=== PATIENT | female | born 1990 | race Caucasian/White ===

== ENCOUNTER 2022-09-20 18:26 | Emergency (ER) | payer MEDICAID ==
[~2022-09-20] VITALS: Ht 157.5 cm; Wt 71.7 kg
[2022-09-20 19:15] VITALS: BP 126/83
--- NOTE | 2022-09-20 19:18 | NUR ---
TO LOBBY A/W BED,AMBULATORY
[2022-09-20 21:21] LABS: APPEARANCE,URINE CLEAR (CLEAR); BILIRUBIN,URINE NEGATIVE (NEGATIVE); BLOOD, URINE TRACE-I (NEGATIVE); COLOR,URINE YELLOW (YELLOW); LEUKOCYTE ESTERASE ,URINE TRACE (NEGATIVE); NITRITE, URINE NEGATIVE (NEGATIVE); UGLUCOSE NEGATIVE (NEGATIVE)
[2022-09-20 21:28] LABS: RBC,URINE 0-5 /HPF (0-5); WBC,URINE 0-5 /HPF (0-5)
--- NOTE | 2022-09-20 22:09 | NUR ---
called patient. no answer
--- NOTE | 2022-09-20 22:20 | NUR ---
called patient no answer.
--- NOTE | 2022-09-20 22:20 | NUR ---
PATIENT LEFT WITHOUT BEING SEEN BY DR. PITTMAN. NO FURTHER CARE PROVIDED FOR PATIENT.
== END 2022-09-20 22:20 | disposition left against medical advice (07) ==
LOC: MED 18:26
DX: M54.50 Low back pain, unspecified (principal); Z53.21 Procedure and treatment not carried out due to patient leaving prior to being seen by health care provider
CPT/HCPCS: 81001; 99281

== ENCOUNTER 2023-09-22 13:47 | Emergency (ER) | payer MEDICAID, OTHER ==
[~2023-09-22] VITALS: Ht 157.5 cm; Wt 75.3 kg
[2023-09-22 13:51] VITALS: BP 149/86; PULSE 94; RESP 16; TEMP 99; O2SAT 98
[2023-09-22] MEDS: KETOROLAC 30 MG/ML VIAL IM ONE (14:49)
[2023-09-22] MEDS ORDERED: CYCL-711 PO (14:57)
[2023-09-22] MEDS ORDERED: METH1ADH21 TP (14:57)
[2023-09-22] MEDS ORDERED: NAPR-1704 PO (14:57)
[2023-09-22 15:10] VITALS: BP 135/82; PULSE 88; RESP 16; TEMP 98; O2SAT 98
== END 2023-09-22 15:10 | disposition home or self-care (01) ==
LOC: MED 13:47
DX: M54.50 Low back pain, unspecified (principal); Z79.899 Other long term (current) drug therapy
CPT/HCPCS: 72100; 81002; 81025; 96372; 99283; J1885

== ENCOUNTER 2024-03-10 00:25 | Emergency (ER) | payer OTHER ==
[~2024-03-10] VITALS: Ht 157.5 cm; Wt 78.9 kg
[~2024-03-10 00:25] MED LIST: CYCL-711 PO; METH1ADH21 TP; NAPR-1704 PO
[2024-03-10 00:39] VITALS: BP 143/84; PULSE 82; RESP 22; TEMP 98.1; O2SAT 98
[2024-03-10 00:45] VITALS: BP 148/82; PULSE 86; RESP 22; TEMP 98.1; O2SAT 98
[2024-03-10 01:22] LABS: BASOPHILS # (AUTO) 0.1 K/uL (0.00-0.22); BASOPHILS % (AUTO) 0.9 % (0.0-2.0); EOSINOPHILS # (AUTO) 0.2 K/uL (0-0.4); HEMOGLOBIN 13.4 g/dL (12.0-16.0); LYMPHOCYTES # (AUTO) 3.7 K/uL (2.5-16.5); LYMPHOCYTES % (AUTO) 40.8 % (20.5-51.1); MEAN CORPUSCULAR HEMOGLOBIN 30 pg (27-31); MEAN CORPUSCULAR HGB CONC 35 g/dL (33-37); MEAN CORPUSCULAR VOLUME 84.5 fL (80-94); MONOCYTES # (AUTO) 0.5 K/uL (0.8-1.0); MONOCYTES % (AUTO) 5.7 % (1.7-9.3); NEUTROPHILS # (AUTO) 4.5 K/uL (1.8-7.7); NEUTROPHILS % (AUTO) 50.6 % (42.2-75.2); PLATELET COUNT (AUTO) 302 K/uL (140-450); RED CELL DISTRIBUTION WIDTH 12.6 % (11.6-13.7)
[2024-03-10 01:36] LABS: ALBUMIN 3.9 g/dL (3.4-5.0); ANION GAP 16.1 (8-16); CALCIUM 9.3 mg/dL (8.5-10.1); CARBON DIOXIDE 23.2 mmol/L (21-32); CREATININE 0.9 mg/dL (0.6-1.3); POTASSIUM 3.3 mmol/L (3.5-5.1); TOTAL BILIRUBIN 0.4 mg/dL (0.0-1.0); TOTAL PROTEIN, SERUM 7.6 g/dL (6.4-8.2)
[2024-03-10 01:41] LABS: APPEARANCE,URINE CLEAR (CLEAR); BILIRUBIN,URINE NEGATIVE (NEGATIVE); BLOOD, URINE 1+ (NEGATIVE); COLOR,URINE YELLOW (YELLOW); LEUKOCYTE ESTERASE ,URINE NEGATIVE (NEGATIVE); NITRITE, URINE NEGATIVE (NEGATIVE); PROTEIN,URINE NEGATIVE (NEGATIVE); UGLUCOSE NEGATIVE (NEGATIVE); UROBILINOGEN,URINE 0.2 EU/dL (0.2 - 1)
[2024-03-10] MEDS: NACL 0.9% 1,000 ML IV ONE (01:42)
[2024-03-10] MEDS: ONDANSETRON 4 MG/2 ML VIAL IVP ONE (01:42)
[2024-03-10] MEDS: MORPHINE SULFATE 2 MG/ML SYR IVP STA (01:43)
[2024-03-10] MEDS: KETOROLAC 30 MG/ML VIAL IVP ONE (01:43)
[2024-03-10 01:44] LABS: WBC,URINE 0-5 /HPF (0-5)
[2024-03-10 01:45] LABS: BACTERIA,URINE 10-30 (MOD) /HPF (None Seen); MUCUS,URINE 1+ /LPF (None Seen); SQUAMOUS EPITHELIAL CELL,UR 4-10 (MOD) /LPF (0-3 (FEW))
[2024-03-10] MEDS ORDERED: cefTRIAXone 1,000 MG VIAL ONE (02:45)
[2024-03-10] MEDS ORDERED: ACET-8905 PO (03:22)
[2024-03-10] MEDS ORDERED: ONDA-188 PO (03:22)
[2024-03-10] MEDS ORDERED: IBUP-2213 PO (03:22)
[2024-03-10] MEDS ORDERED: AMOX1TAB8 PO (03:22)
[2024-03-10 03:25] LABS: LACTIC ACID 1.5 mmol/L (0.4-2.0)
== END 2024-03-10 03:25 | disposition left against medical advice (07) ==
LOC: MED 00:25
DX: N10 Acute pyelonephritis (principal); K80.50 Calculus of bile duct without cholangitis or cholecystitis without obstruction; K80.20 Calculus of gallbladder without cholecystitis without obstruction; Z79.1 Long term (current) use of non-steroidal anti-inflammatories (NSAID); Z79.2 Long term (current) use of antibiotics; Z79.899 Other long term (current) drug therapy; Z98.84 Bariatric surgery status
CPT/HCPCS: 36415; 76705; 80053; 81001; 81025; 83605; 83690; 85025; 87040; 87086; 96361; 96365; 96375; 99285; J0696; J1885; J2270; J2405; J7030; Q0092